=== PATIENT | female | born 1995 | race African-American/Black ===

== ENCOUNTER 2017-04-27 23:55 | Emergency (ER) | payer SELFPAY ==
[~2017-04-27] VITALS: Ht 160 cm; Wt 56.0 kg
[2017-04-28 00:09] VITALS: BP 119/68
== END 2017-04-28 03:34 | disposition home or self-care (01) ==
LOC: ER 23:55
DX: L03.113 Cellulitis of right upper limb (principal)
CPT/HCPCS: 99283